=== PATIENT | female | born 2000 | race African-American/Black ===

== ENCOUNTER 2020-01-27 09:29 | Emergency (ER) | payer MEDICAID ==
[~2020-01-27] VITALS: Ht 167.6 cm; Wt 64.0 kg
[~2020-01-27 09:29] MED LIST: ADVIR
[2020-01-27 09:37] VITALS: BP 104/62
== END 2020-01-27 12:37 | disposition left against medical advice (07) ==
LOC: ER 09:43
DX: R10.9 Unspecified abdominal pain (principal); Z53.21 Procedure and treatment not carried out due to patient leaving prior to being seen by health care provider